=== PATIENT | female | born 1995 | race Caucasian/White ===

== ENCOUNTER 2017-07-17 19:12 | Emergency (ER) | payer OTHER ==
[2017-07-17 19:55] LABS: BASOPHILS 0.1 % (0-2); EOSINOPHILS 1.2 % (0-7); HEMATOCRIT 41.4 % (36.0-48.0); HEMOGLOBIN 13.9 g/dL (12-16); IMMATURE GRANULOCYTES 0.1 % (0-5); LYMPHOCYTES 21.5 % (15-50); MCHC 33.6 g/dL (31.0-37.0); MCV 92.4 fL (80.0-100.0); MEAN PLATELET VOLUME 9.7 fL (7.4-10.4); MONOCYTES 10.2 % (2-11); NEUTROPHILS 66.9 % (40-80); PLATELET COUNT 226 10x3/uL (130-400); RBC 4.48 10x6/uL (4.00-5.40); RDW 12.8 % (11.5-14.5); WBC 10.4 10x3/uL (4.8-10.8)
[2017-07-17 20:06] LABS: APPEARANCE CLEAR (CLEAR); BILIRUBIN NEGATIVE (NEGATIVE); COLOR YELLOW (YELLOW); GLUCOSE NEGATIVE (NEGATIVE); KETONE NEGATIVE (NEGATIVE); NITRITE NEGATIVE (NEGATIVE); PROTEIN NEGATIVE (NEGATIVE); SPECIFIC GRAVITY 1.015 (1.005-1.020); UROBILINOGEN NORMAL (NORMAL)
[2017-07-17 20:07] LABS: BACTERIA FEW /hpf (NONE SEEN); EPITHELIAL CELLS 0-5 /hpf (0-5); RED CELLS - URINE OCC /hpf (0-5)
[2017-07-17 20:07] LABS: ALBUMIN 3.2 g/dL (3.4-5.0); ALKALINE PHOSPHATASE 92 U/L (46-116); ALT (SGPT) 19 U/L (10-68); BILIRUBIN - TOTAL 0.25 mg/dL (0.2-1.3); CALC OSMOLALITY 281 mosm/kg (275-300); CALCIUM 8.7 mg/dL (8.5-10.1); CHLORIDE - SERUM 105 mmol/L (98-107); CREATININE - SERUM 0.8 mg/dL (0.6-1.3); GLUCOSE 107 mg/dL (74-106); POTASSIUM - SERUM 3.6 mmol/L (3.5-5.1); PROTEIN - SERUM 7.1 g/dL (6.4-8.2); SODIUM 142 mmol/L (136-145); UREA NITROGEN 11 mg/dL (7-18); eGFR NON AFRICAN AMERICAN > 90 mL/min (90-120)
== END 2017-07-17 21:28 | disposition home or self-care (01) ==
LOC: D.ER 19:12
PROVIDERS: Family Medicine
DX: J06.9 Acute upper respiratory infection, unspecified (principal); N39.0 Urinary tract infection, site not specified; I45.6 Pre-excitation syndrome

== ENCOUNTER 2018-08-09 00:44 | Emergency (ER) | payer OTHER ==
[~2018-08-09] VITALS: Ht 162.6 cm; Wt 63.5 kg
[2018-08-09 00:49] VITALS: Ht 162.6 cm; Wt 63.5 kg
[2018-08-09] MEDS ORDERED: CLEOCIN HCL300 MG PO (01:03)
[2018-08-09 01:29] VITALS: BP 121/84
== END 2018-08-09 01:30 | disposition home or self-care (01) ==
LOC: D.ER 00:44
DX: L08.9 Local infection of the skin and subcutaneous tissue, unspecified (principal)

== ENCOUNTER 2019-03-02 14:41 | Emergency (ER) | payer OTHER ==
[~2019-03-02] VITALS: Ht 162.6 cm; Wt 68.2 kg
[~2019-03-02 14:41] MED LIST: CLEOCIN HCL300 MG PO
[2019-03-02 14:48] VITALS: Ht 162.6 cm; Wt 68.2 kg
[2019-03-02 15:09] LABS: BASOPHILS 0.4 % (0-2); HEMATOCRIT 45.9 % (36.0-48.0); HEMOGLOBIN 14.9 g/dL (12-16); IMMATURE GRANULOCYTES 0.1 % (0-5); LYMPHOCYTES 29.7 % (15-50); MCH 30.3 pg (26.0-34.0); MCHC 32.5 g/dL (31.0-37.0); MCV 93.5 fL (80.0-100.0); MEAN PLATELET VOLUME 9.5 fL (7.4-10.4); MONOCYTES 9.5 % (2-11); NEUTROPHILS 58.3 % (40-80); RBC 4.91 10x6/uL (4.00-5.40); RDW 13.3 % (11.5-14.5)
[2019-03-02 15:14] LABS: PLATELET COUNT 304 10x3/uL (130-400)
[2019-03-02 15:26] LABS: CALC OSMOLALITY 281 mosm/kg (275-300); CALCIUM 9.4 mg/dL (8.5-10.1); CARBON DIOXIDE 29.4 mmol/L (21.0-32.0); CHLORIDE - SERUM 104 mmol/L (98-107); CREATININE - SERUM 0.7 mg/dL (0.6-1.3); GLUCOSE 95 mg/dL (74-106); POTASSIUM - SERUM 3.6 mmol/L (3.5-5.1); SODIUM 142 mmol/L (136-145); UREA NITROGEN 9 mg/dL (7-18); eGFR NON AFRICAN AMERICAN > 90 mL/min (90-120)
[2019-03-02 15:27] LABS: HCG URINE NEGATIVE (NEGATIVE)
[2019-03-02 15:30] LABS: APPEARANCE HAZY (CLEAR); BILIRUBIN NEGATIVE (NEGATIVE); COLOR YELLOW (YELLOW); GLUCOSE NEGATIVE (NEGATIVE); KETONE NEGATIVE (NEGATIVE); NITRITE NEGATIVE (NEGATIVE); PROTEIN NEGATIVE (NEGATIVE); SPECIFIC GRAVITY 1.025 (1.005-1.020); UROBILINOGEN NORMAL (NORMAL); WHITE CELLS - URINE 0-5 /hpf (NEGATIVE)
[2019-03-02 15:31] LABS: BACTERIA MODERATE /hpf (NEGATIVE); MUCUS <1+ /lpf (NONE SEEN); YEAST >1+ WITH HYPHAE /hpf (NONE SEEN)
[2019-03-02 15:32] LABS: RED CELLS - URINE 0-5 /hpf (0-5)
[2019-03-02 15:33] LABS: ALBUMIN 3.5 g/dL (3.4-5.0); ALKALINE PHOSPHATASE 125 U/L (46-116); ALT (SGPT) 30 U/L (10-68); AMYLASE - SERUM 46 U/L (25-115); BILIRUBIN - TOTAL 0.49 mg/dL (0.2-1.3); LIPASE 74 U/L (73-393); PROTEIN - SERUM 7.7 g/dL (6.4-8.2)
[2019-03-02] MEDS ORDERED: PROCTOFOAM-HC F10 G1 RC (18:26)
[2019-03-02] MEDS ORDERED: MIRALAX17 GM PO (18:26)
[2019-03-02 18:54] VITALS: BP 124/86
== END 2019-03-02 18:54 | disposition home or self-care (01) ==
LOC: D.ER 14:41
PROVIDERS: Family Medicine
DX: K59.00 Constipation, unspecified (principal); K64.8 Other hemorrhoids; I45.6 Pre-excitation syndrome

== ENCOUNTER 2019-03-26 15:17 | Emergency (ER) | payer OTHER ==
[~2019-03-26] VITALS: Ht 162.6 cm; Wt 68.2 kg
[~2019-03-26 15:17] MED LIST changes: +MIRALAX17 GM PO; +PROCTOFOAM-HC F10 G1 RC
[2019-03-26 15:31] VITALS: Ht 162.6 cm; Wt 68.2 kg
[2019-03-26] MEDS ORDERED: [UNRECOGNIZED DRUG - OTHER] (15:37)
[2019-03-26 16:04] LABS: APPEARANCE CLEAR (CLEAR); BILIRUBIN NEGATIVE (NEGATIVE); COLOR YELLOW (YELLOW); GLUCOSE NEGATIVE (NEGATIVE); KETONE NEGATIVE (NEGATIVE); NITRITE NEGATIVE (NEGATIVE); PROTEIN NEGATIVE (NEGATIVE); SPECIFIC GRAVITY 1.025 (1.005-1.020); UROBILINOGEN NORMAL (NORMAL)
[2019-03-26 16:05] LABS: BACTERIA FEW /hpf (NEGATIVE); EPITHELIAL CELLS 0-5 /hpf (0-5); RED CELLS - URINE 0-5 /hpf (0-5)
[2019-03-26 16:38] LABS: BASOPHILS 0.2 % (0-2); EOSINOPHILS 1.9 % (0-7); HEMOGLOBIN 13.5 g/dL (12-16); IMMATURE GRANULOCYTES 0.3 % (0-5); LYMPHOCYTES 35.8 % (15-50); MCH 30.3 pg (26.0-34.0); MCHC 32.9 g/dL (31.0-37.0); MCV 91.9 fL (80.0-100.0); MEAN PLATELET VOLUME 9.5 fL (7.4-10.4); MONOCYTES 8.1 % (2-11); NEUTROPHILS 53.7 % (40-80); PLATELET COUNT 271 10x3/uL (130-400); RBC 4.46 10x6/uL (4.00-5.40); RDW 13.1 % (11.5-14.5); WBC 6.4 10x3/uL (4.8-10.8)
[2019-03-26 16:46] LABS: HCG SERUM NEGATIVE (NEGATIVE)
[2019-03-26 16:47] LABS: CALC OSMOLALITY 281 mosm/kg (275-300); CALCIUM 8.4 mg/dL (8.5-10.1); CARBON DIOXIDE 26.8 mmol/L (21.0-32.0); CHLORIDE - SERUM 106 mmol/L (98-107); CREATININE - SERUM 0.8 mg/dL (0.6-1.3); GLUCOSE 98 mg/dL (74-106); POTASSIUM - SERUM 3.4 mmol/L (3.5-5.1); SODIUM 142 mmol/L (136-145); UREA NITROGEN 9 mg/dL (7-18); eGFR NON AFRICAN AMERICAN > 90 mL/min (90-120)
[2019-03-26 16:52] LABS: ALBUMIN 3.1 g/dL (3.4-5.0); ALKALINE PHOSPHATASE 116 U/L (46-116); ALT (SGPT) 27 U/L (10-68); AMYLASE - SERUM 54 U/L (25-115); BILIRUBIN - TOTAL 0.18 mg/dL (0.2-1.3); LIPASE 93 U/L (73-393); PROTEIN - SERUM 6.8 g/dL (6.4-8.2)
[2019-03-26 19:17] VITALS: BP 115/79
== END 2019-03-26 19:17 | disposition home or self-care (01) ==
LOC: D.ER 15:17
PROVIDERS: Family Medicine
DX: R10.9 Unspecified abdominal pain (principal); R19.7 Diarrhea, unspecified

== ENCOUNTER 2019-11-12 13:31 | Emergency (ER) | payer OTHER ==
[~2019-11-12 13:31] MED LIST changes: +[UNRECOGNIZED DRUG - OTHER]
[2019-11-12 13:35] VITALS: BP 121/84; Ht 162.6 cm
[2019-11-12 14:29] LABS: BILIRUBIN NEGATIVE (NEGATIVE); GLUCOSE NEGATIVE (NEGATIVE); KETONE NEGATIVE (NEGATIVE); NITRITE NEGATIVE (NEGATIVE); UROBILINOGEN NORMAL (NORMAL)
[2019-11-12 14:32] LABS: BACTERIA FEW /hpf (NEGATIVE); EPITHELIAL CELLS 0-5 /hpf (0-5); HCG URINE NEGATIVE (NEGATIVE); RED CELLS - URINE 0-5 /hpf (0-5); WHITE CELLS - URINE 0-5 /hpf (NEGATIVE)
[2019-11-12] MEDS ORDERED: DIFLUCAN150 MG PO (14:49)
== END 2019-11-12 15:44 | disposition home or self-care (01) ==
LOC: D.ER 13:31
PROVIDERS: Family Medicine
DX: B37.3 Candidiasis of vulva and vagina (principal)

== ENCOUNTER 2020-08-05 23:19 | Emergency (ER) | payer OTHER ==
[~2020-08-05] VITALS: Ht 162.6 cm; Wt 68.0 kg
[~2020-08-05 23:19] MED LIST changes: +DIFLUCAN150 MG PO
[2020-08-05 23:24] VITALS: Ht 162.6 cm; Wt 68.0 kg
[2020-08-06 00:36] LABS: BILIRUBIN NEGATIVE (NEGATIVE); HCG URINE NEGATIVE (NEGATIVE); KETONE NEGATIVE (NEGATIVE); NITRITE NEGATIVE (NEGATIVE); UROBILINOGEN NORMAL mg/dL (< 2)
[2020-08-06] MEDS ORDERED: ZOFRAN ODT4 MG/UDTAB PO (01:25)
[2020-08-06] MEDS ORDERED: ULTRAM50 MG PO (01:25)
[2020-08-06 01:37] VITALS: BP 110/71
== END 2020-08-06 01:37 | disposition home or self-care (01) ==
LOC: D.ER 23:19
PROVIDERS: Family Medicine
DX: G43.909 Migraine, unspecified, not intractable, without status migrainosus (principal); R11.2 Nausea with vomiting, unspecified